=== PATIENT | female | born 2000 | race Caucasian/White ===

== ENCOUNTER 2024-06-29 20:16 | Emergency (ER) | payer SELFPAY ==
[2024-06-29 20:33] VITALS: BP 124/58; PULSE 91; RESP 16; TEMP 36.7; O2SAT 95; BMI 20.6
--- NOTE | 2024-06-29 20:43 | ED.WOUNDLAC ---
HPI - Wound/Laceration General Chief Complaint: Wound/Laceration Stated Complaint: laceration left forearm Time Seen by Provider: 06/29/24 23:15 Source: patient Mode of arrival: ambulatory Limitations: no limitations History of Present Illness ED Provider: eileen HPI narrative: Patient had few drinks earlier got upset and started cutting her left forearm with razor blade came with superficial laceration left forearm denies any SI . It has a family support does not want to talk to therapist has a therapist as outpatient Related Data Allergies Allergy/AdvReac Type Severity Reaction Status Date / Time No Known Allergies Allergy Verified 06/29/24 20:34 [No Known Allergies*] Review of Systems Review of Systems: Yes all other systems are reviewed and are negative PMFSH Social History Social History Alcohol intake: current Smoked in Last 30 Days: No Use of substances other than those prescribed or required for medical reasons: No Advance Directives: No Advance Directives Information Provided: No Do you have a plan to hurt others: No Plan Patient : No Physical Exam Vital Signs: Vital Signs: Last Vital Signs Temp 98.0 F 06/29/24 22:43 Pulse 71 06/29/24 22:43 Resp 14 06/29/24 22:43 BP 106/56 L 06/29/24 22:43 Pulse Ox 96 06/29/24 22:43 O2 Del Method Room Air 06/29/24 22:43 BMI result Body Mass Index 20.6 Appearance: Alert. Oriented X3. No acute distress. Mood stable denies any SI or HI at this time Eyes: PERRLA, No Nystagmus ENT: Pharynx normal. Oral Mucosa moist Neck: Normal inspection. Neck supple. CVS: Normal heart rate and rhythm. Pulses normal. Respiratory: No respiratory distress. Equal air entry bilateral, Abdomen: Soft and nontender. Bowel sounds are present, Skin: Skin warm and dry. Normal skin color. Normal skin turgor. Extremities: Superficial linear lacerations left forearm Neuro: Oriented X 3. Course Course Course Narrative: This is a Rapid Medical Examination (RME) performed by Elisa Gardner PA-C in triage. Full HPI, ROS, assessment and treatment plan per primary provider in the Main ED. 24-year-old female presents the ER for evaluation of several lacerations on her left forearm that were self-induced early this morning after drinking large amounts of alcohol last night. She states she regrets cutting herself. Wounds are scabbed and gaping open, no active bleeding. Denies any current suicidal thoughts. Plan: Wound repair, Tdap, possible care team evaluation if patient agrees Medical Decision Making Medical Decision Making MDM Narrative: stapled and glue was also applied advised to follow up as outpatient Procedures Laceration Laceration 1: Site: upper extremity (Forearm) Side (If applicable): left Size (cm): 12 Description: linear Depth: simple, single layer Local Anesthetic: lidocaine 1% Amount of anesthesia used (mL): 6 Skin layer closed with: other ([place]# 12, and skin glue) Discharge Plan Discharge Clinical Impression: Laceration Patient Disposition: Home, Self-Care Instructions: Laceration (DC) Additional Instructions: Local care as advised Staple removal in 10 days Follow up with your therapist Interventions: ED Discharge Assessment Last Done: 06/30/24 00:48 Print Language: Maltese
[2024-06-29 22:43] VITALS: BP 106/56; PULSE 71; RESP 14; TEMP 36.7; O2SAT 96
[2024-06-30 00:48] VITALS: BP 110/58; PULSE 72; RESP 16; TEMP 36.9; O2SAT 97
== END 2024-06-30 00:18 | disposition home or self-care (01) ==
PROVIDERS: Emergency Provider Internal Medicine
DX: S51.812A Laceration without foreign body of left forearm, initial encounter (principal); X78.8XXA Intentional self-harm by other sharp object, initial encounter; Y93.9 Activity, unspecified; Y92.9 Unspecified place or not applicable; Y99.9 Unspecified external cause status
CPT/HCPCS: 12004; 99284

== ENCOUNTER 2024-07-08 18:42 | Emergency (ER) | payer SELFPAY ==
[2024-07-08 19:10] VITALS: BP 116/82; PULSE 97; RESP 16; TEMP 36.8; O2SAT 97; BMI 23.4
== END 2024-07-08 21:13 | disposition left against medical advice (07) ==
PROVIDERS: Emergency Provider Emergency Medicine
DX: M79.632 Pain in left forearm (principal); Z53.21 Procedure and treatment not carried out due to patient leaving prior to being seen by health care provider
CPT/HCPCS: 99281

== ENCOUNTER 2024-07-10 15:41 | Emergency (ER) | payer SELFPAY ==
[2024-07-10 17:20] VITALS: BP 137/83; PULSE 84; RESP 14; TEMP 36.9; O2SAT 97; BMI 22.3
--- NOTE | 2024-07-10 17:25 | ED_ITS ---
HPI - General Adult General Chief complaint: Skin/Abscess/Foreign Body Stated complaint: Removal of clare Time Seen by Provider: 07/10/24 17:25 Source: patient, RN notes reviewed and old records reviewed Mode of arrival: ambulatory Limitations: no limitations History of Present Illness ED Provider: Bianka HPI narrative: 24-year-old female presents for evaluation of staple removal. Patient was seen here 11 days ago for lacerations. She had 4 separate lacerations, there were closed with clare in the smaller 1 was closed with Dermabond glue The patient reports that she initially had some pain and redness to the area. There was some drainage from the proximal wound but this appears to be improving She has been treating herself with topical antibiotic only Related Data Previous Rx's ?Medication ?Instructions ?Recorded cephalexin 500 mg capsule 500 mg PO QID #28 caps 07/10/24 Allergies Allergy/AdvReac Type Severity Reaction Status Date / Time No Known Allergies Allergy Verified 07/10/24 17:23 [No Known Allergies*] Review of Systems 2 Constitutional: Constitutional: Denies body ache(s), Denies chills and Denies fever(s) ENT: Denies vertigo, Denies dizziness and Denies sore throat Cardiovascular: Cardiovascular: Denies chest pain and Denies dyspnea Respiratory: Respiratory: Denies cough and Denies dyspnea Gastrointestinal: Gastrointestinal: Denies abdominal pain, Denies nausea and Denies vomiting Musculoskeletal: Musculoskeletal: Denies back pain Integumentary/Breasts: Skin/Breast: Reports erythema and Reports wounds Neurologic: Denies vertigo and Denies dizziness PMFSH Social History Social History Alcohol intake: current Physical Exam ED Vital Signs: Vital Signs - 24 hr 07/10/24 17:20 Temperature 98.5 F Pulse Rate 84 Respiratory Rate 14 Blood Pressure 137/83 Pulse Oximetry 97 Oxygen Delivery Method Room Air BMI result Body Mass Index 22.3 Const General: healthy appearing, comfortable, no acute distress, alert and awake Nutritional Appearance: well nourished Orientation/consciousness: patient oriented x3 HENMT Head: Yes normocephalic and Yes atraumatic Eyes Eyelids: Yes eyelids normal Conjunctivae: conjunctivae normal Sclerae: sclerae normal Corneas: corneas normal Pupils: Equal, round and reactive pupils present EOM: EOMs intact bilaterally Neck Neck: Yes full ROM Resp Effort & Inspection: normal respiratory effort, able to speak in complete sentences and not labored Skin Other: General skin exam: elasticity normal Neuro General: patient oriented x3 Cranial nerves: Yes Equal, round and reactive pupils present and Yes Bilaterally intact EOM present Cognition (Neuro): normal cognition Extrem Other: Moving all extremities well without any obvious deformities Medical Decision Making Medical Decision Making MDM Narrative: Patient's wounds appear to be well healed, the most proximal wound has surrounding erythema minimal drainage. Appears to be developing cellulitis. The patient's seems to think this is improving compared to where it was a few days ago. However we will still treat with a week's course of cephalexin.. All 15 clare were successfully removed Differential Diagnosis Differential Diagnoses: The differential diagnosis associated with the presentation includes Wound check Laceration Staple removal Cellulitis Discharge Plan Discharge Clinical Impression: Encounter for removal of clare, Cellulitis Patient Disposition: Home, Self-Care Instructions: Cellulitis (ED), Stitches Removal (ED) Additional Instructions: Your wounds appear well healed and well approximated. The wound closest to your elbow may be developing a skin infection. Take cephalexin 4 times daily for 1 week Follow-up with your primary doctor, return for new or worsening symptoms Prescriptions: New cephalexin 500 mg capsule 500 mg PO QID Qty: 28 0RF Interventions: ED Discharge Assessment Last Done: 07/10/24 17:33 Print Language: Bruneian
[2024-07-10 17:33] VITALS: BP 137/83; PULSE 84; RESP 14; TEMP 36.9; O2SAT 97
== END 2024-07-10 17:38 | disposition home or self-care (01) ==
LOC: HO.ED 17:34
PROVIDERS: Emergency Provider Internal Medicine
DX: L03.114 Cellulitis of left upper limb (principal); Z48.02 Encounter for removal of sutures
CPT/HCPCS: 99282; 99283

== ENCOUNTER 2024-10-28 23:20 | Emergency (ER) | payer SELFPAY ==
--- NOTE | 2024-10-28 | ECG_ITS ---
Test Reason : CP Blood Pressure : */* mmHG Vent. Rate : 107 BPM Atrial Rate : 107 BPM P-R Int : 126 ms QRS Dur : 78 ms QT Int : 330 ms P-R-T Axes : 39 62 49 degrees QTcB Int : 440 ms Sinus tachycardia Otherwise normal ECG No previous ECGs available Referred By: Generic ED Physician Electronically Signed By: Lucio De La Torre
--- NOTE | ~2024-10-28 | XR_ITS ---
CLINICAL HISTORY: cough cp 1 view chest x-ray. Comparison: None Findings: The lungs appear clear. There is no consolidation, effusion, or nodule identified. Cardiomediastinal silhouette is within normal limits. IMPRESSION: No acute cardiopulmonary abnormality. This document has been electronically signed by: Yonatan Jj MD on 10/29/2024 00:03:21
[2024-10-28 23:28] VITALS: BP 132/68; BP 94/57; PULSE 103; PULSE 130; RESP 20; TEMP 37.8; O2SAT 95; O2SAT 98; BMI 25.4
[2024-10-29 00:05] LABS: IDNOW Serial# 58CA691E; Strep A Nucleic Acid Negative (Negative)
[2024-10-29 00:29] LABS: Influenza A PCR POSITIVE (Negative); Influenza B PCR NEGATIVE (Negative); Resp Syncy Virus RNA Qual PCR NEGATIVE (Negative); SARS COV2 PCR INHOUSE NEGATIVE (Negative)
[2024-10-29] MEDS: Ibuprofen 600 MG TABLET PO (00:44)
--- NOTE | 2024-10-29 01:13 | ED_ITS ---
HPI - URI/Sore Throat General Chief Complaint: Upper Respiratory Symptoms Stated Complaint: covid? Time Seen by Provider: 10/29/24 01:11 Source: patient Mode of arrival: EMS Limitations: no limitations History of Present Illness ED Provider: HPI Narrative: Patient came from home by ambulance for sore throat cough body aches started yesterday other family member also sick with same Related Data Previous Rx's ?Medication ?Instructions ?Recorded cephalexin 500 mg capsule 500 mg PO QID #28 caps 07/10/24 codeine 10 mg-guaifenesin 100 mg/5 10 ml PO Q6H PRN cough #237 mL 10/29/24 mL oral liquid Allergies Allergy/AdvReac Type Severity Reaction Status Date / Time No Known Allergies Allergy Verified 10/28/24 23:32 [No Known Allergies*] Review of Systems Review of Systems: Yes all other systems are reviewed and are negative [facility] Social History Social History Alcohol intake: current Advance Directives: No Advance Directives Information Provided: No Do you have a plan to hurt others: No Plan Physical Exam Vital Signs: Vital Signs: Last Vital Signs Temp 100.1 F 10/28/24 23:28 Pulse 103 H 10/28/24 23:28 Resp 20 10/28/24 23:28 BP 94/57 L 10/28/24 23:28 Pulse Ox 95 10/28/24 23:28 O2 Del Method Room Air 10/28/24 23:28 BMI result Body Mass Index 25.4 Appearance: Alert. Oriented X3. No acute distress. ENT: Pharynx normal. Oral Mucosa moist clear rhinorrhea Neck: Normal inspection. Neck supple. CVS: Normal heart rate and rhythm. Pulses normal. Respiratory: No respiratory distress. Equal air entry bilateral, no wheezing/rales/rhonchi Skin: Skin warm and dry. Normal skin color. Normal skin turgor. Extremities: No lower extremity edema. Neuro: Oriented X 3. Medications Administered Discontinued Medications Generic Name Dose Route Start Last Admin Trade Name Freq PRN Reason Stop Dose Admin Ibuprofen 600 mg 10/28/24 23:43 10/29/24 00:44 Ibuprofen 600 Mg Tablet PO 10/28/24 23:44 600 mg ONCE ONE Administration Medical Decision Making Medical Decision Making MDM Narrative: Patient with flu a will prescribe cough syrup and advised take ibuprofen for pain Lab Data MDM Lab Attestation statement: I reviewed the patient's lab results. Labs: Lab Results 10/28/24 Range/Units 23:41 Influenza Type A (PCR) POSITIVE A (Negative) Influenza Type B (PCR) NEGATIVE (Negative) RSV RNA Qual (PCR) NEGATIVE (Negative) SARS-CoV-2 RNA (RT-PCR) NEGATIVE (Negative) S. pyogenes GrpA SANAZ Negative (Negative) Discharge Plan Discharge Clinical Impression: Influenza Patient Disposition: Home, Self-Care Instructions: Influenza (ED) Additional Instructions: Drink plenty of fluids Tylenol/Motrin for fever and body aches Cough syrup as prescribed Prescriptions: New codeine-guaifenesin 10-100 mg/5 mL liquid 10 ml PO Q6H PRN (Reason: cough) Qty: 237 0RF No Action cephalexin 500 mg capsule 500 mg PO QID Qty: 28 0RF Print Language: Canadian
[2024-10-29] MEDS: guaiFEN/Codeine SF 200/20/10ML 10 ML LIQUID PO (01:57)
[2024-10-29 02:04] VITALS: BP 94/57; PULSE 103; RESP 20; TEMP 37.8; O2SAT 95
== END 2024-10-29 02:05 | disposition home or self-care (01) ==
PROVIDERS: Emergency Provider Internal Medicine
DX: J10.1 Influenza due to other identified influenza virus with other respiratory manifestations (principal); R05.9 Cough, unspecified; M79.10 Myalgia, unspecified site; R07.89 Other chest pain; R00.0 Tachycardia, unspecified; Z03.818 Encounter for observation for suspected exposure to other biological agents ruled out
CPT/HCPCS: 0241U; 71045; 87651; 93005; 99283

== ENCOUNTER → 2024-10-28 23:38 | Outpatient (BNV) | payer SELFPAY | PROVIDERS: Emergency Provider Internal Medicine; Visit Provider Internal Medicine Cardiovascular Disease | DX: R00.0 Tachycardia, unspecified (principal) | CPT/HCPCS: 93010 ==

== ENCOUNTER → 2024-10-28 23:40 | Outpatient (BNV) | payer SELFPAY | PROVIDERS: Visit Provider Radiology Diagnostic Radiology | DX: R05.9 Cough, unspecified (principal); R07.9 Chest pain, unspecified | CPT/HCPCS: 71045 ==

== ENCOUNTER 2025-05-18 14:56 | Outpatient (REF) | payer OTHER, SELFPAY ==
[2025-05-18 16:44] LABS: MANUAL DIFF FLAG NO
[2025-05-18 17:04] LABS: Alanine Aminotransferase 12 U/L (0-31); Albumin Level 4.9 g/dL (3.5-5.0); Alkaline Phosphatase 64 U/L (39-117); Anion Gap 11 (12-20); Aspartate Amino Transferase 21 U/L (5-31); Blood Urea Nitrogen 12 mg/dL (9-16); Calcium 9.4 mg/dL (8.4-10.2); Carbon Dioxide 25 mmol/L (22-29); Chloride 106 mmol/L (96-108); Estimated Glomerular Filt Rate > 60; Potassium 3.7 mmol/L (3.3-5.1); Sodium 138 mmol/L (135-145); Total Protein 7.9 g/dL (6.5-8.0)
[2025-05-18 17:10] LABS: INTERNATIONAL NORM RATIO 0.9 (0.9-1.1); Prothrombin Time 10.6 SEC (10.9-12.4)
[2025-05-18 17:26] LABS: Hematocrit 41.5 % (37.0-47.0); Hemoglobin 14.2 g/dl (12.0-16.0); Imm Gran Abs Auto 0.03 X10*3/uL (0.00-0.03); Imm Gran Pct Auto 0.4 % (0.0-0.4); Lymphocytes Absolute Auto 2.4 X10*3/uL (1.2-4.9); Mean Corpuscular HGB Conc 34.2 g/dl (31.0-35.0); Mean Corpuscular Hemoglobin 29.0 pg (27.0-33.0); Mean Corpuscular Volume 84.9 fL (80.0-98.0); NRBC Abs Auto 0.000 X10*3/uL (0.0-0.012); NRBC Pct Auto 0.0 /100WBC (0.0-0.2); Platelet Count 246 X10*3/uL (160-400); Red Blood Count 4.89 X10*6/uL (4.20-5.50); White Blood Count 7.5 X10*3/uL (4.8-10.8)
[2025-05-21 08:04] LABS: Syphilis Screen Nonreactive (Nonreactive)
[2025-05-21 08:42] LABS: HBS Num1 12.56 mIU/mL (0-7.99); HBc Num1 0.21 S/CO (0.00-0.79); HBsAGNum1 0.37 S/CO (0.00-0.99); HIV Num 1 0.05 S/CO (0.00-0.99); Hepatitis B Surface Antigen Negative (Negative); ~HepC Num1 0.07 S/CO (0.00-0.79); ~Hepatitis B Surface Antibody REACTIVE (Nonreactive); ~Hepatitis C Antibody Nonreactive (Nonreactive)
[2025-05-25 03:55] LABS: ~Hepatitis A Antibody IgG 9.20 S/CO (0.00-0.99)
== END 2025-05-18 14:57 | disposition home or self-care (01) ==
LOC: HO.HHCL 14:56
PROVIDERS: PCP General Practice; Visit Provider Family Medicine
DX: Z11.4 Encounter for screening for human immunodeficiency virus [HIV] (principal); Z11.59 Encounter for screening for other viral diseases; Z11.3 Encounter for screening for infections with a predominantly sexual mode of transmission; F10.20 Alcohol dependence, uncomplicated; F14.10 Cocaine abuse, uncomplicated
CPT/HCPCS: 36415; 80048; 80076; 85025; 85610; 86704; 86706; 86708; 86780; 86803; 87340; 87389

== ENCOUNTER 2025-08-02 17:34 | Outpatient (REF) | payer OTHER, SELFPAY ==
--- OUTSIDE RECORDS SUMMARY | 2025-08-02 11:00 | XMS_ITS | Encounter Summary ---
Author Organization [employer] Address [address] [place] [address] Care Team Providers Care Chief Analytics Officer Name Role Phone Irene Mullen MD Primary Care Provider Reason for Visit * Reason Comments sick onsite Encounter Details Date Type Department Care Team ([facility] Contact Info) Description 08/02/2025 11:00 AM EDT Office Visit [facility] [address] [place] [address] Olamide Juarez CNM [address] [place] [address] Vaginal irritation (Primary Dx); Abnormal uterine bleeding; Routine cervical smear; Urinary symptom or sign Social History Tobacco Use Types Packs/Day Years Used Date Smoking Tobacco: Every Day Cigarettes 0.3 0.5 Passive Smoke Exposure: Current Smokeless Tobacco: Former Tobacco Cessation:Ready to Q uit: Not Asked; Counseling Given: Not Answered Alcohol Use Standard Drinks/Week Comments Defer 0 (1 standard drink = 0.6 oz pur e alcohol) Alcohol Answer Date Recorded How often do you have a drink containing alcohol ? 1 05/18/2025 How many drinks containing a lcohol do you have on a typical day when you are drinking? 2 05/18/2025 How often do you have six or more drinks on one occasion? 1 05/18/2025 Depression Answer Date Recorded Patient Health Questionnaire-9 Score 15 05/25/2025 Patient Health Questionnaire-9 Score 15 05/25/2025 Last PHQ-9: Questionnaire Data Not on file 0 05/25/2025 Housing Stability Answer Date Recorded What is your housing situation today? I have housing today, but I am worried about losing housing in the future 05/25/[address] you li ve. Do you have problems with any of the following? Pests such as bugs, ants, or mice 05/25/2025 Food Insecurity Answer Date Recorded Within the past 12 months, y ou worried that your food would run out before you got money to buy more: Often true 2024 Within the past 12 months,th e food you bought just didn't last and you didn't have enough money to get more: Sometimes True 05/25/2025 Transportation Answer Date Recorded In the past 12 months, has l ack of transportation kept you from medical appts, meetings, work or from getting things needed for daily living? Yes, it has kept me from non-medical meetings, work, or getting things that I need 05/25/2025 Utilities Answer Date Recorded In the past 12 months, has t he electric, gas, oil or water company threatened to shut off services in your home? Yes 05/25/2025 Depression Answer Date Recorded Patient Health Questionnaire-2 Score 4 05/25/2025 Internet Access Answer Date Recorded Internet Access Q1 Yes 05/25/2025 Internet Access Q2 Not on file 05/25/2025 Comments No Intention Date Recorded No desire to become (finding) 1 Sex and Gender Information Value Date Recorded Sex Assigned at Female 08/10/2022 10:17 AM EDT Legal Sex Female 10:17 AM EDT Gender Identity Female 08/10/2022 10:17 AM EDT Sexual Orientation Choose not to disclose 2021 10:17 AM EDT documented as of this encounter Last Filed Vital Signs Vital Sign Reading Time Taken Comments Blood Pressure 120/70 08/02/2025 11:13 AM EDT Pulse 75 08/02/2025 11:13 AM EDT Temperature 36.6 C (97.8 F) 08/02/2025 11:13 AM EDT Respiratory Rate 14 08/02/2025 11:13 AM EDT Oxygen Saturation 96% 08/02/2025 11:13 AM EDT Inhaled Oxygen Concentration - - Weight 53 kg (116 lb 12.8 oz) 08/02/2025 11:13 A M EDT Height - - Body Mass Index 22.81 05/25/2025 9:42 AM EDT documented in this encounter Progress Notes * Olamide Dickersoneveretterebeca, CNM - 08/02/2025 11:00 AM EDT Subjective Patient ID: Rosmery Cantor is a 25 y.o. female who presents for vaginal symptoms. Nexplanon replaced 05/2022. Pap NIL 06/2022. Per triage, notes urinary and vaginal symptoms. Notes vaginal irritation with tampon use. LMP 07/19, has been bleeding since then, switched to pads recently due to discomfort with tampons. 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 No other vaginal symptoms. Normal CBC 05/2025. No true dysuria, but rather discomfort when urine touches skin. 1 fci AMAB partner x 8 y, no safety concerns. Gonorrhea/Chlamydia/trichomonas neg 2020. No pain or bleeding with sex. Not planning in the next year. Frustrated by bleeding, otherwise has been okay with Nexplanon. Open to treating bleeding today and considering removal if no improvement. Due for pap, she would like to do this today. Review of Systems Constitutional: Negative for chills and fever. Genitourinary: Positive for menstrual problem and vaginal bleeding. Negative for dyspareunia, dysuria, flank pain, frequency, hematuria, pelvic pain, urgency, vaginal discharge and vaginal pain. Objective BP 120/70 (BP Location: Left arm, Patient Position: Sitting, BP Cuff Size: Adult) Pulse 75 Temp97.8 ??F (36.6 ??C) (Oral) Resp 14 Wt 116 lb 12.8 oz (53 kg) LMP 07/19/2025 SpO2 96% BMI 22.81 kg/m?? Physical Exam Constitutional: Appearance: Normal appearance. Genitourinary: Vagina: Normal. No signs of injury and foreign body. No vaginal discharge, erythema, tenderness, bleeding, lesions or prolapsed vaginal calderon. Cervix: Normal. No cervical motion tenderness, discharge, friability, lesion, erythema, cervical bleeding or eversion. Uterus: Normal. Not enlarged and not tender. Adnexa: Right adnexa normal and left adnexa normal. Right: No mass, tenderness or fullness. Left: No mass, tenderness or fullness. Comments: Erythema of introitus and bilateral inner labia. Scant blood in vagina. Neurological: Mental Status: She is alert. Psychiatric: Mood and Affect: Mood normal. Behavior: Behavior normal. Assessment/Plan Diagnoses and all orders for this visit: Vaginal irritation - POCT fern test, vaginal fluid manually resulted - Bacterial Vaginosis, Yeast and trichomonas Bacterial vaginosis noted. Will send in oral treatment. Avoid vaginal irritants, abstain from sex during treatment. If yeast noted on send out, will treat. Abnormal uterine bleeding Would like to try treating bleeding first. For ibuprofen as rx'd. Let me know if not helpful. May schedule Nexplanon removal at any time if desired. Consider Gonorrhea/Chlamydia testing or ultrasoundif AUB persists. Routine cervical smear - Pap Smear Pap sent today. Repeat 3y if normal. Urinary symptom or sign - POCT urinalysis dipstick manually resulted (CPT 31571) Blood on UA consistent with vaginal bleeding. No true dysuria. Will hold off on sending culture. Other orders - ibuprofen 600 MG tablet; 1 tablet every 8 hours with food x 7days - metroNIDAZOLE (Flagyl) 500 MG tablet; Take 1 tablet (500 mg) by mouth 2 times daily for 7 days. documented in this encounter Plan of Treatment Scheduled Orders Name Type Priority Associated Diagnoses Order Schedule Bacterial Vaginosis, Yeast and Trich Microbiology Routine Vaginal irritation Ordered: 08/02/2025 Pap Smear Pathology and Cytology Routine Routine cervical smear Ordered: 08/02/2025 documented as of this encounter Procedures Procedure Name Priority Date/Time Associated Diagnosis Comments POCT WET MOUNT/JORGE L Routine 08/02/2025 11 :46 AM EDT Vaginal irritation POCT URINALYSIS DIPSTICK Routine 08/02/2025 11:34 AM EDT Urinary symptom or sign documented in this encounter Results * POCT fern test, vaginal fluid manually resulted (08/02/2025 11:46 AM EDT) JORGE L Prep Positive Comment:pH 5.5, pos whiff, p os clue, neg trich, neg yeast, neg wbc Vaginal Fluid Vaginal structure / Unknown 08/02/2025 11:46 AM EDT Olamide Dickersonhalina [employer] POINT OF CARE TEST ENTER/ EDIT ORDERABLES Final Result * (ABNORMAL) POCT urinalysis dipstick manually resulted (CPT 58884) (08/02/2025 11:34 AM EDT) Color, UA Yellow Clarity, UA Clear Glucose, UA Negative Bilirubin, UA Negative Ketones, UA Negative Spec Grav, UA 1.030 Blood, UA Positive(A) Negative, None Detected Comment:moderate pH, UA 6.5 Protein, UA Trace Urobilinogen, UA 0.2 Leukocytes, UA Negative Negative, Rare, Trace Nitrite, UA Negative Negative, None Detected Appearance, UA yellow QC Media Lot # [id number] Lot# Expiration Date Urine (Urine, Random) 08/02/2025 11:34 AM EDT [facility] ENTER/ EDIT ORDERABLES Final Result documented in this encounter Visit Diagnoses Diagnosis Vaginal irritation- Primary Pruritus of genital organs Abnormal uterine bleeding Unspecified disorder of menstruation and other abnormal bleeding from female genital tract Routine cervical smear Screening for malignant neoplasm of the cervix Urinary symptom or sign documented in this encounter Additional Health Concerns Assessment Noted Time PHQ-9 Depression Total Score: 15 025 9:42 AM EDT documented as of this encounter Care Teams Chief Analytics Officer Relationship Specialty Start Date End Date Irene Mullen MD [address] [place] [id number] PCP - General Family Medicine 06/10/20 documented as of this encounter
--- OUTSIDE RECORDS SUMMARY | 2025-08-02 19:39 | XMS_ITS | Clinical Summary ---
Author Organization [employer] Address [address] [place] [address] Care Team Providers Care Supervisor Instrument Mechanics Name Role Phone Beth Riley MD Primary Care Provider [phone] Allergies No known active allergies Medications * This document contains information received from the source organization and may not represent a complete record from that organization. ARIPiprazole (Abilify) 2 MG tablet Take 1 tablet (2 mg) by mouth Once per day. 30 tablet 05/18/2025 Active busPIRone (Buspar) 10 MG tablet Take 1 tablet (10 mg) by mouth 2 times daily. 60 tablet 11 05/25/2025 Active ibuprofen 600 MG tablet 1 tablet every 8 hours with food x 7days 21 tablet 08/02/2025 Active metroNIDAZOLE (Flagyl) 500 MG tablet Take 1 tablet (500 mg) by mouth 2 times daily for 7 days. 14 tablet 08/02/2025 Active Active Problems Problem Noted Date Diagnosed Date Mild intermittent asthma, unspecified whether co mplicated 05/18/2025 Cocaine use 05/18/2025 Alcohol dependence with alco hol-induced mood disorder (CMS/HCC) 05/18/2025 Assessment & Plan (05/18/2025 12:16 PM EDT): Booked appointment in [facility] at 130 today Housing instability due to imminent risk of home lessness 05/18/2025 Acute pericoronitis 02/19/2023 Bipolar disorder 08/02/2012 Assessment & Plan (05/25/2025 10:33 AM EDT): >>ASSESSMENT AND PLAN FOR BIPOLAR DISORDER, CURRENT EPISODE DEPRESSED, SEVERE, UNSPECIFIED WHETHER PSYCHOTIC FEATURES (CMS/HCC) WRITTEN ON 05/18/2025 12:17 PM BY BETH RILEY MD Start Abilify 2mg, phone visit with me in 6 weeks to determine whether this is an effective dose Attention deficit hyperactivity disorder 012 Asthma 08/02/2012 Encounters * This document contains information received from the source organization and may not represent a complete record from that organization. Date Type Department Care Team Description 08/02/2025 11:00 AM EDT Office Visit [facility] [address] [place] [phone] Olamide Juarez CNM Vaginal irritation (Primary Dx); Abnormal uterine bleeding; Routine cervical smear; Urinary symptom or sign 08/02/2025 Travel 08/01/[address] [facility] [address] [place] [address] Sandhya Light [place] 08/01/[address] [facility] [address] [place] [phone] Beth Riley MD Nurse Triage 07/11/[address] [facility] OPTOMET[facility] [address] [place] [address] Tonia Choudhary OD [address] [facility] [address] [place] [address] López Kong MD 2025 Travel 06/07/[address] [facility] [address] [place] [phone] Beth Riley MD Nurse Triage 06/01/2025 3:15 PM EDT Telemedicine [facility] [address] [place] [phone] López Kong MD Severe alcohol dependence (CMS/HCC) (Primary Dx); Cocaine use disorder (CMS/HCC) 06/01/2025 Travel 05/25/2025 9:30 AM EDT Office Visit [facility] [address] [place] [phone] Beth Riley MD Alcohol dependence with alcohol-induced mood disorder (CMS/HCC) (Primary Dx); Bipolar affective disorder, currently depressed, mild (CMS/HCC); Mild intermittent asthma, unspecified whether complicated; Cocaine use 05/25/2025 Travel 05/23/[address] [facility] [address] [place] [phone] Beth Riley MD chart prep 05/18/2025 1:15 PM EDT Office Visit [facility] [address] [place] [phone] López Kong MD Severe alcohol dependence (CMS/HCC) (Primary Dx); Cocaine use disorder (CMS/HCC) 05/18/2025 10:20 AM EDT Office Visit [facility] [address] [place] [phone] Beth Riley MD Bipolar disorder, current episode depressed, severe, unspecified whether psychotic features (CMS/HCC) (Primary Dx); Mild intermittent asthma, unspecified whether complicated; Alcohol dependence with alcohol-induced mood disorder (CMS/HCC) 05/18/2025 Travel 05/18/[address] [facility] [address] [place] [phone] Beth Riley MD Appointment Request 05/18/[address] [phone] Beth Riley MD Appointment Request from Last 3 Months Immunizations Immunization Administration Dates Next Due DTaP 06/20/2004, 2,03/22/2001,02/03,2000 HPV 9-Valent 01/30/2016 HPV, Quadrivalent 09/05/2012,08/02/2012 Hep A, ped/adol, 2 dose 08/03/2016,01/30/2016 Hep B, Adolescent or Pediatric 03/22/2001,2000,2000 Hib (HbOC) 11/24/2001, 1,02/03/2001,09/06 IPV 06/20/2004, 1,02/03/2001,09/06 Influenza injectable quadriv alent preservative free 06/29/2022,11/20/2019,07/07/2017 Influenza, Split (incl. brittnee fied surface antigen) 08/02/2012 MMR 06/20/2004,08/01/2001 Meningococcal MCV4P ACYW-135 02/03/2017,09/05/20 12 Pneumococcal Conjugate PCV 7 08/01/2001,04/28/20 01 Tdap 09/05/2012 Varicella 09/05/2012,08/01/2001 Social History Tobacco Use Types Packs/Day Years [...] not to disclose 2021 10:17 AM EDT Last Filed Vital Signs Vital Sign Reading [...] oz) 08/02/2025 11:13 A M EDT Height 152.4 cm (5') 05/25/2025 9:42 AM EDT Body Mass Index 22.81 05/25/2025 9:42 AM EDT Plan of Treatment Health Maintenance Due Date Last Done Comments Dental Oral Exam 2000 Dental Prophylaxis 2000 Dental X-Ray: Bitewings 2000 Lipid Panel 2000 Hepatitis B Vaccines (4 of 4 - 4-dose series) 03/31/2001 03/22/2001, 02/03/2001, 2000 Pneumococcal Vaccine: Pediatrics (0 to 5 Years) and At-Risk Patients (6 to 49) Years (1 of 2 - PCV) 2019 08/01/2001, 04/28/2001 DTaP/Tdap/Td Vaccines (7 - Td or Tdap) 09/05/2022 09/05/2012, 06/20/2004, 11/24/2001, Additional history exists COVID-19 Vaccine ( - season) 2025 05/20/2021, 04/29/2021 Influenza Vaccine (#1) 2025 , 11/20/2019, 07/07/2017, Additional history exists Pap Smear 06/29/2025 06/29/2022 Depression Monitoring 11/25/2025 05/25/2025, 025 Dental X-Ray: Full Mouth 02/20/2026 02/19/2023 Alcohol/Substance Use Screening 05/18/2026 05/18/2025 SDOH Screening 05/25/2026 05/25/2025 Disability Screening 06/01/2026 06/01/2025 Family Planning (PISQ) 08/02/2026 08/02/2025 Tobacco Screening 08/02/2026 08/02/2025 Zoster Vaccines (1 of 2) 2050 RSV Patients and Patients Aged 60 years or older (1 - 1-dose 75+ series) 2075 HIB Vaccines Completed 11/24/2001, 03/11, 02/03/2001, Additional history exists IPV Vaccines Completed 06/20/2004, 03/11, 02/03/2001, Additional history exists HPV Vaccines Completed 01/30/2016, 08/12, 08/02/2012 Hepatitis A Vaccines Completed 08/03/2016, 01/30/20 16 Meningococcal Vaccine Completed 02/03/2017, 012 HIV Screening Completed 05/18/2025 Hepatitis C Screening Completed 05/18/2025 Meningococcal B Vaccine Aged Out No l onger eligible based on patient's age to complete this topic RSV under 20 months Aged Out No longe r eligible based on patient's age to complete this topic Rotavirus Vaccines Aged Out No longer eligible based on patient's age to complete this topic Procedures Procedure Name Priority Date/Time Associated Diagnosis Comments POCT WET MOUNT/JORGE L Routine 08/02/2025 11 :46 AM EDT Vaginal irritation POCT URINALYSIS DIPSTICK Routine 08/02/2025 11:34 AM EDT Urinary symptom or sign SYPHILIS SCREEN Routine 05/18/2025 3:01 PM EDT Severe alcohol dependence (CMS/HCC) Cocaine use disorder (CMS/HCC) HIV 1/2 ANTIGEN/ANTIBODY, FOURTH GENERATION W/RFL Routine 05/18/2025 3:01 PM EDT Severe alcohol dependence (CMS/HCC) Cocaine use disorder (CMS/HCC) HEPATITIS C AB W/REFL TO HCV RNA, QN, PCR Routine 05/18/2025 3:01 PM EDT Severe alcohol dependence (CMS/HCC) Cocaine use disorder (CMS/HCC) HEPATITIS B SURFACE ANTIGEN, EIA Routine 05/18/2025 3:01 PM EDT Severe alcohol dependence (CMS/HCC) Cocaine use disorder (CMS/HCC) HEPATITIS B SURFACE ANTIBODY, QUALITATIVE Routine 05/18/2025 3:01 PM EDT Severe alcohol dependence (CMS/HCC) Cocaine use disorder (CMS/HCC) HEPATITIS B CORE AB TOTAL Routine 05/18/2025 3:01 PM EDT Severe alcohol dependence (CMS/HCC) Cocaine use disorder (CMS/HCC) HEPATITIS A ANTIBODY, TOTAL Routine 05/18/2025 3:01 PM EDT Severe alcohol dependence (CMS/HCC) Cocaine use disorder (CMS/HCC) PROTHROMBIN TIME-INR Routine 05/18/2025 3:01 PM EDT Severe alcohol dependence (CMS/HCC) Cocaine use disorder (CMS/HCC) CBC WITH AUTO DIFFERENTIAL Routine 05/18/2025 3:01 PM EDT Severe alcohol dependence (CMS/HCC) Cocaine use disorder (CMS/HCC) BASIC METABOLIC PANEL Routine 05/18/2025 3:01 PM EDT Severe alcohol dependence (CMS/HCC) Cocaine use disorder (CMS/HCC) HEPATIC FUNCTION PANEL Routine 05/18/2025 3:01 PM EDT Severe alcohol dependence (CMS/HCC) Cocaine use disorder (CMS/HCC) POCT TOBY-14 URINE DRUG SCREEN Routine 05/18/2025 1:25 PM EDT Severe alcohol dependence (CMS/HCC) POCT ALCOHOL BREATH TEST Routine 05/18/2025 1:25 PM EDT Severe alcohol dependence (CMS/HCC) POCT , URINE Routine 05/18/2025 11:24 AM EDT Bipolar disorder, current episode depressed, severe, unspecified whether psychotic features (CMS/HCC) PANORAMIC RADIOGRAPHIC IMAGE Routine 02/19/2023 1:00 PM EDT THINPREP IMAGING SYSTEM PAP Routine 06/29/2022 10:40 AM EDT from Last 3 Months or Most Recently Relevant to Health Maintenance Results * POCT fern test, vaginal fluid manually resulted (08/02/2025 11:46 AM EDT) JORGE L Prep Positive Comment:pH 5.5, pos whiff, p os clue, neg trich, neg yeast, neg wbc Vaginal Fluid Vaginal structure / Unknown 08/02/2025 11:46 AM EDT [facility] POINT OF CARE TEST ENTER/ EDIT ORDERABLES Final Result * (ABNORMAL) POCT urinalysis dipstick manually resulted (CPT 47910) (08/02/2025 11:34 AM EDT) Color, UA Yellow Clarity, UA Clear Glucose, UA Negative Bilirubin, UA Negative Ketones, UA Negative Spec Grav, UA 1.030 Blood, UA Positive(A) Negative, None Detected Comment:moderate pH, UA 6.5 Protein, UA Trace Urobilinogen, UA 0.2 Leukocytes, UA Negative Negative, Rare, Trace Nitrite, UA Negative Negative, None Detected Appearance, UA yellow Media Lot # [id number] Lot# Expiration Date Urine (Urine, Random) 08/02/2025 11:34 AM EDT Olamide Rizzardini CNM POINT OF CARE TEST ENTER/ EDIT ORDERABLES Final Result * Syphilis Screen (05/18/2025 3:01 PM EDT) Syphilis Screen Nonreactive Nonreactive [facility] Blood 05/18/2025 3:01 PM EDT 05/18/2025 4:39 PM EDT us López Kong MD LAB BLOOD ORDERABLES Final Resul t [facility] [address] [place] [address] [phone] * CBC auto differential (05/18/2025 3:01 PM EDT) Pathologist [facility] White Blood Count 7.5 4.8 - 10.8 X10*3/uL [facility] Red Blood Count 4.89 4.20 - 5.50 X10*6/uL [facility] Hemoglobin 14.2 12.0 - 16.0 g/dl [facility] Hematocrit 41.5 37.0 - 47.0 % [facility] Mean Corpuscular Volume 84.9 80.0 - 98.0 fL [facility] Mean Corpuscular Hemoglobin 29.0 27.0 - 33.0 pg [facility] Mean Corpuscular HGB Conc 34.2 31.0 - 35.0 g/dl [facility] Red Cell Distribution Width 13.5 11.0 - 16.0 % [facility] Platelet Count 246 160 - 400 X10*3/uL [facility] Mean Platelet Volume 11.9 9.4 - 12.3 fL [facility] Neutrophils Percent Auto 59.8 45 - 73 % [facility] Imm Gran Pct Auto 0.4 0.0 - 0.4 % [facility] Lymphocytes Percent Auto 31.3 20 - 40 % [facility] Monocytes Percent Auto 5.9 2 - 11 % [facility] Eosinophils Percent Auto 2.1 0 - 4 % [facility] Basophils Percent Auto 0.5 0 - 2 % [facility] NRBC Pct Auto 0.0 0.0 - 0.2 /100WBC [facility] Neutrophils Absolute Auto 4.5 2.0 - 8.3 x10*3/uL [facility] Imm Gran Abs Auto 0.03 0.00 - 0.03 X10*3/uL [facility] Lymphocytes Absolute Auto 2.4 1.2 - 4.9 X10*3/uL [facility] Monocytes Absolute Auto 0.4 0.1 - 1.2 X10*3/uL [facility] Eosinophils Absolute Auto 0.2 0.0 - 0.4 X10*3/uL [facility] Basophils Absolute Auto 0.0 0.0 - 0.2 X10*3/uL [facility] NRBC Abs Auto 0.000 0.0 - 0.012 X10*3/uL [facility] Blood Venous blood specimen / Unknown 05/18/2025 3:01 PM EDT 05/18/2025 4:39 PM EDT López Kong MD LAB BLOOD ORDERABLES Final Resul t Performing Organization Address City/[facility]/ZIP Co de Phone Number [facility] [address] [place] [phone] * Hepatitis C Antibody with Reflex to HCV, RNA, Quantitative, Real-Time PCR (05/18/2025 3:01 PM EDT) Hepatitis C Antibody Nonreactive Nonreactive [facility] Comment:Antibodies to HCV no t detected; does not exclude early acuteHCV infection. Blood Venous blood specimen / Unknown 05/18/2025 3:01 PM EDT 05/18/2025 4:39 PM EDT López Kong MD LAB BLOOD ORDERABLES Final Resul t Performing Organization Address City/[facility]/ZIP Co de Phone Number [facility] [address] [place] [phone] * Hepatitis A Antibody, Total (05/18/2025 3:01 PM EDT) Hepatitis A Antibody IgG REACTIVE Nonreactive [facility] Comment:The presence of IgG anti-HAV implies past HAV infection(recent or distant) or vaccination against HAV. Blood Venous blood specimen / Unknown 05/18/2025 3:01 PM EDT 05/18/2025 4:39 PM EDT López Kong MD LAB BLOOD ORDERABLES Final Resul t Performing Organization Address City/[facility]/ZIP Co de Phone Number [facility] [address] [place] [phone] * Hepatitis B surface antigen, EIA (05/18/2025 3:01 PM EDT) Hepatitis B Surface Ag Negative Negative [facility] Blood Venous blood specimen / Unknown 05/18/2025 3:01 PM EDT 05/18/2025 4:39 PM EDT López Kong MD LAB BLOOD ORDERABLES Final Resul t Performing Organization Address [facility] Co de Phone Number [facility] [address] [place] [phone] * Hepatitis B Core Antibody, Total (05/18/2025 3:01 PM EDT) Hepatitis B Core Antibody Nonreactive Nonreactive [facility] Blood Venous blood specimen / Unknown 05/18/2025 3:01 PM EDT 05/18/2025 4:39 PM EDT López Kong MD LAB BLOOD ORDERABLES Final Resul t Performing Organization Address [facility] Co de Phone Number [facility] [address] [place] [phone] * HIV-1/2 Antigen and Antibodies, Fourth Generation, with Reflexes (05/18/2025 3:01 PM EDT) HIV AB/AG Nonreactive Nonreactive [facility] Comment:HIV-1 p24 Ag and/or HIV-1/HIV-2 Ab not detected.A test result that is nonreactive does not exclude thepossibility of exposure to or infection with HIV-1 and/orHIV-2. Nonreactive results in this assay for individualswith prior exposure to HIV-1 and/or HIV-2 may be due toantigen and antibody levels that are below the limit ofdetection of this assay.The [employer] HIV Ag/Ab Combo assay result andsupplemental assay results should be interpreted inconjunction with the patient's clinical presentation,history and other laboratory results. If the results areinconsistent with clinical evidence, additional testing issuggested to confirm the result. Blood Venous blood specimen / Unknown 05/18/2025 3:01 PM EDT 05/18/2025 4:39 PM EDT us López Kong MD LAB BLOOD ORDERABLES Final Resul t Performing Organization Address City/[facility]/ZIP Co de Phone Number [facility] [address] [place] [phone] * Hepatitis B Surface Antibody, Qualitative (05/18/2025 3:01 PM EDT) [facility] ~Hepatitis B Surface Antibody REACTIVE Nonreactive [facility] Comment:REACTIVE: > 11.99 mI U/mL Blood Venous blood specimen / Unknown 05/18/2025 3:01 PM EDT 05/18/2025 4:39 PM EDT us López Kong MD LAB BLOOD ORDERABLES Final Resul t Performing Organization Address [facility] Co de Phone Number [facility] [address] [place] [phone] * (ABNORMAL) Prothrombin Time-INR (05/18/2025 3:01 PM EDT) [facility] Prothrombin Time 10.6(L) 10.9 - 12.4 SEC [facility] INTERNATIONAL NORM RATIO 0.9 0.9 - 1.1 [facility] Comment:INTERNATIONAL NORMAL IZED RATIO (INR) REFERENCE RANGES Reference RangeFor patients not on anticoagulant therapy: 0.9 - 1.1INR ranges for oral anticoagulanttherapy:For prevention and treatment of venous thrombosis and pulmonary embolism: 2.0 - 3.0For acute myocardial infarction with aspirin therapy: 2.0 - 3.0For acute myocardial infarction without aspirin therapy: 3.0 - 4.0For patients with mechanical prosthetic heart valves: 2.5 - 3.5 Blood Venous blood specimen / Unknown 05/18/2025 3:01 PM EDT 05/18/2025 4:39 PM EDT us López Kong MD LAB BLOOD ORDERABLES Final Resul t Performing Organization Address [facility] de Phone Number [facility] [address] [place] [phone] * Hepatic Function Panel (05/18/2025 3:01 PM EDT) Bilirubin, Total 0.2 0.0 - 1.0 mg/dL [facility] Bilirubin, Direct <0.2 0.0 - 0.5 mg/dL [facility] Aspartate Amino Transferase 21 5 - 31 U/L [facility] Alanine Aminotransferase 12 0 - 31 U/L [facility] Total Protein 7.9 6.5 - 8.0 g/dL [facility] Albumin Level 4.9 3.5 - 5.0 g/dL [facility] Alkaline Phosphatase 64 39 - 117 U/L [facility] Blood Venous blood specimen / Unknown 05/18/2025 3:01 PM EDT 05/18/2025 4:39 PM EDT us López Kong MD LAB BLOOD ORDERABLES Final Resul t Performing Organization Address [facility] de Phone Number [facility] [address] [place] [phone] * (ABNORMAL) Basic Metabolic Panel (05/18/2025 3:01 PM EDT) Sodium 138 135 - 145 mmol/L [facility] Potassium 3.7 3.3 - 5.1 mmol/L [facility] Chloride 106 96 - 108 mmol/L [facility] Carbon Dioxide 25 22 - 29 mmol/L [facility] Anion Gap 11(L) 12 - 20 [facility] Urea Nitrogen (BUN) 12 9 - 16 mg/dL [facility] Creatinine, Serum 0.63 0.5 - 1.4 mg/dL [facility] Estimated Glomerular Filt Rate >60 [facility] Comment:Chronic Kidney Disea se: Estimated GFR < 60 mL/min/1.99j4Fladup Kidney Disease: Estimated GFR < 15 mL/min/1.73m2 Glucose 80 60 - 115 mg/dL [facility] Calcium 9.4 8.4 - 10.2 mg/dL [facility] Blood Venous blood specimen / Unknown 05/18/2025 3:01 PM EDT 05/18/2025 4:39 PM EDT López Kong MD LAB BLOOD ORDERABLES Final Resul t [facility] [address] [place] [phone] * POCT TOBY-14 Urine Drug Screen (05/18/2025 1:25 PM EDT) THC Negative Negative Cocaine Screen, Urine Negative Negative Opiate Screen, Urine Negative Negative Methamphetamine Screen Urine Negative Negative Amphetamine Screen, Urine Negative Negative Benzodiazepines Screen, Urine Negative Negative Barbiturate Screen, Urine Negative Negative Methadone Screen, Urine Negative Negative Buprenophine Screen, Urine Negative Negative TCA, Urine Negative Negative MDMA Urine Negative Negative ng/mL Oxycodone Screen, Urine Negative Negative Phencyclidine (PCP), Urine Negative Negative Fentanyl, Urine Negative Negative Urine Urine specimen obtained by clean catch procedure / Unknown 05/18/2025 1:25 PM EDT us López Kong MD POINT OF CARE TEST ENTER/EDIT OR DERABLES Final Result * POCT alcohol breath test manually resulted (05/18/2025 1:25 PM EDT) Breath Alcohol 0.02 Breath 05/18/2025 1:25 PM EDT López Kong MD POINT OF CARE TEST ENTER/EDIT OR DERABLES Final Result * POCT , urine manually resulted (05/18/2025 11:24 AM EDT) Preg Test, Ur Negative Negative, Indeterminate, None Detected, Invalid, Specimen unsatisfactory for evaluation, Weakly Positive, 2+ Urine 05/18/2025 11:2 4 AM EDT Beth Riley MD POINT OF CARE TEST ENTER/EDIT ORDERABLES Final Result * THINPREP TIS PAP (06/29/2022 10:40 AM EDT) Clinical Information: None given [facility] COMMENT SEE COMMENT [facility] Comment: EXPLANATORY NOTE: The Pap is a screening test for cervical cancer. It is not a diagnostic test and is subject to false negative and false positive results. It is most reliable when a satisfactory sample, regularly obtained, is submitted with relevant clinical findings and history, and when the Pap result is evaluated along with historic and current clinical information. COMMENT: This Pap test has been evaluated with computer assisted technology. [facility] Market Development Director : SEE COMMENT [facility] Comment: GSG, CT(ASCP) CT screening location: [place] [address] Interpretation/R esult: Negative for intraepithelial lesion or malignancy. [facility] LMP: AMEN [facility] Prev. BX: NONE GIVEN [facility] Prev. PAP: FISRT PAP [facility] SOURCE: Cervix [facility] Statement Of Adequacy: SEE COMMENT [facility] Comment: Satisfactory for evaluation. Endocervical/transformation zone component present. 06/29/2022 10:4 0 AM EDT us Olamide Juarez CN LAB PATHOLOGY ORDERABLES Final Result [facility] [address] [place] [address], from Last 3 Months or Most Recently Relevant to Health Maintenance Insurance [facility] STAND ADULT Care Teams Supervisor Instrument Mechanics Relationship Specialty Start Date End Date Beth Riley MD [address] [place] [phone] PCP - General Family Medicine 06/10/20
--- OUTSIDE RECORDS SUMMARY | 2025-08-02 19:39 | XMS_ITS | Encounter Summary ---
Author Organization [employer] Address [address] [facility] [place] [address] Care Team Providers Care Firebreak Cutter Name Role Phone Irene Mullen MD Primary Care Provider [phone] Encounter Details Date Type Department Care Team (Latest Contact Info) Description 08/02/2025 Travel Social History Tobacco Use Types Packs/Day Years Used Date Smoking Tobacco: Every Day Cigarettes 0.3 0.5 Passive Smoke Exposure: Current Smokeless Tobacco: Former Alcohol Use Standard Drinks/Week Comments Defer 0 [...] Q2 Not on file 05/25/2025 Comments No Sex and Gender Information Value Date Recorded Sex Assigned at Female 08/10/2022 10:17 AM EDT Legal Sex Female 10:17 AM EDT Gender Identity Female 08/10/2022 10:17 AM EDT Sexual Orientation Choose not to disclose 2021 10:17 AM EDT documented as of this encounter Plan of Treatment Not on file documented as of this encounter Visit Diagnoses Not on filedocumented in this encounter Additional Health Concerns Assessment Noted Time PHQ-9 Depression Total Score: 15 025 9:42 AM EDT documented as of this encounter Care Teams Firebreak Cutter Relationship Specialty Start Date End Date Irene Mullen MD [address] [place] [phone] PCP - General Family Medicine 06/10/20 documented as of this encounter
--- OUTSIDE RECORDS SUMMARY | 2025-08-02 19:39 | XMS_ITS | Encounter Summary ---
Author Organization [employer] Address [address] [place] [address] Care Team Providers Care Accounts Payable Coordinator Name Role Phone Irene Mullen MD Primary Care Provider [phone] Reason for Visit * Reason Onset Date Comments Referral 05/26/2023 Encounter Details Date Type Department Care Team ([facility] st Contact Info) Description 05/26/2023 Telephone [facility] [address] [place], [place] [phone] Todd Mejia DDS [address] [place], [place] [phone] Referral Social History Tobacco Use Types Packs/Day Years Used Date Smoking Tobacco: Former Cigarettes 0.3 0.5 Passive Smoke Exposure: Past Smokeless Tobacco: Former Alcohol Use Standard Drinks/Week Comments Defer 0 (1 standard drink = 0.6 oz pur e alcohol) Comments Unknown Sex and Gender Information Value Date Recorded Sex Assigned at Female 08/10/2022 10:17 AM EDT Legal Sex Female 10:17 AM EDT Gender Identity Female 08/10/2022 10:17 AM EDT Sexual Orientation Choose not to disclose 2021 10:17 AM EDT documented as of this encounter Miscellaneous Notes * Telephone Encounter - Katy Valderrama - 05/27/2023 9:33 AM EDT Thank You Patient was informed Patient stated she will pick it up 05/28/2023 * Telephone Encounter - Katy Valderrama - 05/26/2023 12:48 PM EDT Rosmery Cantor 2000 Patient stated she is still waiting for referral for [facility] advise documented in this encounter Plan of Treatment Not on file documented as of this encounter Visit Diagnoses Not on filedocumented in this encounter Care Teams Accounts Payable Coordinator Relationship Specialty Start Date End Date Irene Mullen MD [address] [place] [id number] PCP - General Family Medicine 06/10/20 documented as of this encounter
--- OUTSIDE RECORDS SUMMARY | 2025-08-02 19:39 | XMS_ITS | Encounter Summary ---
Author Organization [employer] Address [address] [place] [address] Care Team Providers Care Road Crossing Guard Name Role Phone Irene Mullen MD Primary Care Provider [phone] Reason for Visit * Reason Onset Date Comments Nurse Triage 08/01/2025 Encounter Details Date Type Department Care Team ([facility] Contact Info) Description 08/01/2025 Telephone [facility] [address] [place], [place] [phone] Irene Mullen MD [address] [place] [address] Nurse Triage Social History Tobacco Use Types Packs/Day Years [...] encounter Miscellaneous Notes * Telephone Encounter - Robyn Erazo RN - 08/01/2025 12:13 PM EDT TC returned to pt. Pt. Reports dysuria x 1 week. Reports daily vaginal bleeding x a couple of months on nexplanon. Reports she has had nexplanon continuously for approx 10 years and has always had abnormal intermittent bleeding but this has lasted longer than usual. Reports some days are heavy and some days are just spotting. Mild pelvic cramping. Therefore, pt. Has been using tampons daily whic h has caused vaginal irritation and itching. Pt. Admits to scratching and causing abrasions. Pt. Reports history of BV and feels similar. Pt. Reports the burning with voiding is caused by the abrasions and irritation being exposed to urine. Otherwise, pt. Reports feeling the need to urinate more frequently than usual but sometimes only dribbling. Denies fever/ chills, lower back pain. Pt. Is open to discussing alternative contraception options if vaginal bleeding does not resolve. Pt. Agrees to appointment tomorrow at 11am with RAEANN Quiñonez. Advised to drink plenty of extra fluids. Protocol Used: Urinary Symptoms (Adult) Protocol-Based Disposition: See in Office or Video Visit within 2 Weeks Positive Triage Question: * Dribbling (losing urine) just after finishing urination (i.e., post-void dribbling) * All higher-acuity triage questions were negative * Telephone Encounter - Olinda Sapp - 08/01/2025 11:28 AM EDT Symptom: Urine Symptoms Outcome: Schedule an urgent appointment (within 4 hours) or talk to a nurse or provider soon Reason: Pain when passing urine (peeing) The caller accepted this outcome. Contact pt at [phone] documented in this encounter Plan of Treatment Not on file documented as of this encounter Visit Diagnoses Not on filedocumented in this encounter Additional Health Concerns Assessment Noted Time PHQ-9 Depression Total Score: 15 025 9:42 AM EDT documented as of this encounter Care Teams Road Crossing Guard Relationship Specialty Start Date End Date Irene Mullen MD [address] [place] [id number] PCP - General Family Medicine 06/10/20 documented as of this encounter
--- OUTSIDE RECORDS SUMMARY | 2025-08-02 19:39 | XMS_ITS | Encounter Summary ---
Author Organization [employer] Address [address] [place] [address] Care Team Providers Care Stained Glass Glazier Helper Name Role Phone Irene Mullen MD Primary Care Provider [phone] Reason for Visit * Reason Onset Date Comments appt/referral 05/03/2023 Encounter Details Date Type Department Care Team ([facility] st Contact Info) Description 05/03/2023 Telephone [facility] [address] [place] [address] Todd Mejia DDS [address] [place] [address] appt/referral Social History Tobacco Use Types Packs/Day Years [...] encounter Miscellaneous Notes * Telephone Encounter - Bethany Judds - 05/03/2023 12:04 PM EDT Patient has appt requested since February for extraction wisdom tooth with Dr. Mejia. She is in pain again but unable to make it in today as emergency due to being at work. She will be calling in when she knows that she can come in. She is looking to see if she can also have a referral sent to [facility] as well but still keep her request here She is trying to get an appt due to the pain she is having. DR documented in this encounter Plan of Treatment Not on file documented as of this encounter Visit Diagnoses Not on filedocumented in this encounter Care Teams Stained Glass Glazier Helper Relationship Specialty Start Date End Date Irene Mullen MD [address] [place] [address] PCP - General Family Medicine 06/10/20 documented as of this encounter
--- OUTSIDE RECORDS SUMMARY | 2025-08-02 19:39 | XMS_ITS | Encounter Summary ---
Author Organization [email or web address] Address [address] [place] [address] Care Team Providers Care Gopherman Name Role Phone Irene Mullen MD Primary Care Provider [phone] Encounter Details Date Type Department Care Team ([facility] st Contact Info) Description 08/01/2025 Telephone [facility] [address] [place], [place] [phone] Sandhya Light [place] Social History Tobacco Use Types Packs/Day Years [...] encounter Miscellaneous Notes * Telephone Encounter - Sandhya Light MA - 08/01/2025 1:19 PM EDT Chart Prep Labs: done Images: not applicable Referrals: not applicable Vaccines due: Covid, Flu, Tdap, and Hep B Screenings: pap smear Overdue care gaps: Not applicable documented in this encounter Plan of Treatment Not on file documented as of this encounter Visit Diagnoses Not on filedocumented in this encounter Additional Health Concerns Assessment Noted Time PHQ-9 Depression Total Score: 15 025 9:42 AM EDT documented as of this encounter Care Teams Gopherman Relationship Specialty Start Date End Date Irene Mullen MD [address] [place] [address] PCP - General Family Medicine 06/10/20 documented as of this encounter
[2025-08-03 05:34] LABS: Bacterial Vaginosis PCR POSITIVE (Negative); Candida Group PCR NOT DETECTED (Not Detect); Candida glab krusei PCR NOT DETECTED (Not Detect); Trichomonas vaginalis PCR NOT DETECTED (Not Detect)
== END 2025-08-02 17:35 | disposition home or self-care (01) ==
LOC: HO.LNP 17:34
PROVIDERS: Visit Provider Advanced Practice Midwife
DX: Z20.2 Contact with and (suspected) exposure to infections with a predominantly sexual mode of transmission (principal); Z12.4 Encounter for screening for malignant neoplasm of cervix; N89.8 Other specified noninflammatory disorders of vagina
CPT/HCPCS: 81515; 88175